=== PATIENT | male | born 1960 | race Caucasian/White ===

== ENCOUNTER 2017-08-04 09:47 | Day surgery (SDC) | payer BC ==
[~2017-08-04 09:47] MED LIST: Lactated Ringers 1,000 ML IV SCH; Sodium Chloride 0.9% 10 ML Syringe FLUSH PRN
[2017-08-04] MEDS ORDERED: Midazolam 1 MG/ML 2 ML SDV ONE ×2 (13:10→13:12)
[2017-08-04] MEDS ORDERED: Propofol 200 MG/20 ML SDV ONE ×2 (13:10→13:12)
[2017-08-04] MEDS ORDERED: fentaNYL 100 MCG/2 ML SDV ONE ×2 (13:10→13:12)
--- NOTE | 2017-08-05 12:55 | OR ---
Date of Procedure: 08/04/2017 PREOPERATIVE DIAGNOSIS: Colon screening. POSTOPERATIVE DIAGNOSES: 1. Cecal tumor. 2. Colon polyps. PROCEDURE: Colonoscopy with biopsies and polypectomies. ANESTHESIA: IV sedation. DESCRIPTION OF PROCEDURE: The patient was brought to the procedure room, where he was placed on his left side and IV sedation administered. Digital rectal exam was performed, which was normal. Colonoscope was inserted and advanced to the level of the hepatic flexure without difficulty. At that time, there was significant looping, which required changing to the supine position and providing pressure on the abdomen. Cecum was reached and confirmed by identifying the appendiceal lumen and ileocecal valve. Prep was good and surfaces were well visualized. In the cecum was a large 2 x 3 cm sessile mass, consistent with a tubulovillous adenoma. This was well demarcated and soft. I took 6 biopsies from this. Upon withdrawing the scope, there was a 6 mm sessile polyp located in the ascending colon that was removed with a cautery snare and retrieved in the polyp trap. In the transverse colon was a 7 mm sessile polyp, removed with the cautery snare and retrieved in the polyp trap. Descending colon was normal. Sigmoid colon has a larger 9 mm pedunculated polyp, removed with a cautery snare and retrieved in the polyp trap. Rectum was normal and retroflexion was normal. Air was removed. The scope withdrawn. The patient tolerated the procedure well and returned to recovery in stable condition. I will have the patient follow up with Marky Kwan next week for review of pathology report. If the cecal biopsies are benign, referral to Gastroenterology for consideration of endoscopic resection would be recommended. If this is too large to be removed or biopsy show malignancy, right colectomy will be necessary. FLOWER BIRD MD /[id number]
== END 2017-08-04 15:25 | disposition home or self-care (01) ==
LOC: LL.SDS 09:47
PROVIDERS: ATTEND Surgery
DX: Z12.11 Encounter for screening for malignant neoplasm of colon (principal); D12.0 Benign neoplasm of cecum; D12.2 Benign neoplasm of ascending colon; D12.3 Benign neoplasm of transverse colon; D12.5 Benign neoplasm of sigmoid colon; E78.5 Hyperlipidemia, unspecified; Z88.1 Allergy status to other antibiotic agents; Z98.84 Bariatric surgery status; Z90.49 Acquired absence of other specified parts of digestive tract
CPT/HCPCS: 45385; J2250; J2704; J3010